=== PATIENT | male | born 1955 | race Caucasian/White ===

== ENCOUNTER 2020-06-04 06:30 | Emergency (ER) | payer SELFPAY ==
[~2020-06-04] VITALS: Ht 177.8 cm; Wt 83.9 kg
[2020-06-04 06:34] VITALS: BP 145/82
--- NOTE | 2020-06-04 06:34 | NUR ---
TO BED AMBULATORY
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
--- NOTE | 2020-06-04 07:15 | NUR ---
REPORT RECEIVED FROM SAGE JOHNSON, TRANSFER OF CARE AT THIS TIME
[2020-06-04] MEDS ORDERED: ONDANSETRON 4 MG ODT PO ONE (07:25)
[2020-06-04] MEDS ORDERED: KETOROLAC 60 MG/2 ML VIAL IM ONE (07:25)
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
[2020-06-04 08:28] VITALS: BP 145/82
== END 2020-06-04 08:24 | disposition home or self-care (01) ==
LOC: MED 06:30
DX: T59.91XA Toxic effect of unspecified gases, fumes and vapors, accidental (unintentional), initial encounter (principal); R06.02 Shortness of breath; R42 Dizziness and giddiness; Y92.89 Other specified places as the place of occurrence of the external cause
CPT/HCPCS: 96372; 99283; J1885; Q0162